=== PATIENT | male | born 1945 | race Caucasian/White ===

== ENCOUNTER 2016-09-08 15:01 | Emergency (ER) | payer OTHER, MEDICARE ==
[~2016-09-08] VITALS: Ht 185.4 cm; Wt 90.0 kg
[~2016-09-08 15:01] MED LIST: ACID75TA6 PO; DOXY200C PO; FOLI1TAB PO; FURO1TAB93 PO; LEVO750T33 PO; METO50CR PO; PLAV75TA PO; POTA25TA4 PO; PRED20 PO; PREV15CA PO; ROBISYP PO; ROFL1TAB2 PO; SYMB160A INH; TIOT18I INH; Z.0.OXYGEN INH; [UNRECOGNIZED DRUG - CODE]
[2016-09-08 15:14] VITALS: BP 143/74; PULSE 84; RESP 18; TEMP 97.7; O2SAT 91
[2016-09-08 15:48] VITALS: BP 124/77; PULSE 86; RESP 20; O2SAT 98
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
[2016-09-08] MEDS ORDERED: HYDR-3533 PO (16:41)
[2016-09-08 16:48] VITALS: BP 128/75; PULSE 84; RESP 18; O2SAT 98
== END 2016-09-08 17:21 | disposition home or self-care (01) ==
LOC: NEPC 15:01
DX: S06.0X0A Concussion without loss of consciousness, initial encounter (principal); M54.2 Cervicalgia; M54.89 Other dorsalgia; F17.210 Nicotine dependence, cigarettes, uncomplicated; V43.52XA Car driver injured in collision with other type car in traffic accident, initial encounter; Z79.01 Long term (current) use of anticoagulants
CPT/HCPCS: 70450; 72125